=== PATIENT | male | born 2000 | race Caucasian/White ===

== ENCOUNTER 2021-04-27 16:30 | Emergency (ER) | payer BC, OTHER ==
[~2021-04-27] VITALS: Ht 160 cm; Wt 45.8 kg
[2021-04-27 16:44] VITALS: BP_SYST 143
--- NOTE | 2021-04-27 16:49 | NUR ---
Patient to ER bed 6 to gown for evaluation. Side rails up. Report given to SEVERINO DONOVAN.
[2021-04-27 16:56] LABS: BILIRUBIN,URINE NEGATIVE (NEGATIVE); BLOOD, URINE 1+ (NEGATIVE); CLARITY/URINE CLEAR (CLEAR); COLOR,URINE YELLOW (YELLOW); GLUCOSE,URINE NEGATIVE (NEGATIVE); KETONES,URINE NEGATIVE (NEGATIVE); LEUKOCYTE ESTERASE ,URINE NEGATIVE (NEGATIVE); NITRITE, URINE NEGATIVE (NEGATIVE); PH,URINE 8.5 (5.0-8.0); PROTEIN URINE NEGATIVE (NEGATIVE)
[2021-04-27] MEDS ORDERED: FAMOTIDINE 20 MG TABLET PO ONE (17:00)
[2021-04-27] MEDS ORDERED: MAG-AL HYDROX/SIMETH 30 ML UDC PO ONE (17:00)
[2021-04-27] MEDS ORDERED: LR 1,000 ML IV ONE (17:00)
[2021-04-27 17:04] LABS: BACTERIA,URINE None Seen /HPF (None Seen); MUCUS,URINE None Seen /LPF (None Seen); RBC,URINE 0-3 /HPF (0-3); WBC,URINE NONE SEEN /HPF (0-3)
--- NOTE | 2021-04-27 17:05 | NUR ---
DR WEBER IN TO ASSESS
--- NOTE | 2021-04-27 17:15 | NUR ---
C/O ABD PAIN MID LOWER ABD X1 DAYS, DENIES CP/SOB. NO FEVER/ CHILLS. DENIES N,V,D
[2021-04-27 17:27] LABS: BASOPHILS % (AUTO) 0.2 % (0.0-2.0); EOSINOPHILS # (AUTO) 0.1 K/uL (0.0-0.4); EOSINOPHILS % (AUTO) 1.1 % (0.0-4.0); HEMATOCRIT 44.4 % (36-54); HEMOGLOBIN 15.3 g/dL (14.0-18.0); LYMPHOCYTES # (AUTO) 1.1 K/uL (1.0-5.5); LYMPHOCYTES % (AUTO) 11.1 % (20.5-51.5); MEAN CORPUSCULAR HEMOGLOBIN 31 pg (27-31); MEAN CORPUSCULAR HGB CONC 34 % (32-36); MEAN CORPUSCULAR VOLUME 90 fL (79.0-98.0); MONOCYTES # (AUTO) 0.8 K/uL (0.0-1.0); MONOCYTES % (AUTO) 8.2 % (1.7-9.3); NEUTROPHILS # (AUTO) 8.1 K/uL (1.8-7.7); NEUTROPHILS % (AUTO) 79.4 % (40.0-70.0); PLATELET COUNT (AUTO) 243 K/uL (130-430); RED BLOOD CELL COUNT(AUTO) 4.92 MIL/uL (4.2-6.2); RED CELL DISTRIBUTION WIDTH 12.9 % (9.0-15.0); WHITE BLOOD COUNT (AUTO) 10.2 K/uL (4.8-10.8)
[2021-04-27 17:37] LABS: CALCIUM 9.1 mg/dL (8.4-11.0); CREATININE 0.84 mg/dL (0.55-1.30); POTASSIUM 3.1 mmol/L (3.5-5.1)
--- NOTE | 2021-04-27 17:39 | NUR ---
UP AMBULATING STEADY, NO DISTRESS, CALM, ALERT, DENIES FEVER/CHILLS
[2021-04-27 17:41] LABS: INR 1.1 (0.80-1.20); PROTHROMBIN TIME 11.4 SECS (9.5-12.5)
[2021-04-27 17:44] LABS: ALBUMIN 4.5 g/dL (3.4-4.8); BILIRUBIN,DIRECT 0.3 mg/dL (0.0-0.3); TOTAL BILIRUBIN 1.1 mg/dL (0.0-1.0)
[2021-04-27] MEDS ORDERED: POTASSIUM CHLORIDE 20 MEQ TAB.PRT.SR PO ONE (17:45)
--- NOTE | 2021-04-27 18:21 | NUR ---
OFF TO CT VIA WC, NO DISTRESS
--- NOTE | 2021-04-27 19:04 | NUR ---
DR WEBER IN TO ASSESS
--- NOTE | 2021-04-27 19:10 | NUR ---
Patient given written and verbal discharge instructions and verbalizes understanding. ER MD discussed with patient the results and treatment provided. Patient in stable condition. ID arm band removed. IV catheter removed intact and dressing applied, no active bleeding. Patient educated on pain management and to follow up with PMD. Pain Scale Opportunity for questions provided and answered.
[2021-04-27 19:11] VITALS: BP_SYST 128
== END 2021-04-27 19:10 | disposition home or self-care (01) ==
LOC: SED 16:30
DX: R10.33 Periumbilical pain (principal); R11.10 Vomiting, unspecified
CPT/HCPCS: 36415; 74177; 80048; 80076; 81000; 83690; 85025; 85610; 99285; Q9967; 76376